=== PATIENT | male | born 1985 | race Caucasian/White ===

== ENCOUNTER 2016-10-09 16:25 | Emergency (ER) | payer OTHER ==
[~2016-10-09] VITALS: Ht 182.9 cm; Wt 76.0 kg
[2016-10-09 16:27] VITALS: BP 134/98; PULSE 74; RESP 24; TEMP 97.9; O2SAT 100
[2016-10-09] MEDS ORDERED: SODIUM CHLOR 0.9% 1000 ML INJ 1,000 ML IV SCH (20:29)
[2016-10-09] MEDS ORDERED: SODIUM CHLORIDE 0.9% FLUSH 5 ML FLUSH IVF PRN (20:30)
[2016-10-09] MEDS ORDERED: MORPHINE SULFATE 4 MG/ML INJ IV PUSH ONE (20:30)
[2016-10-09] MEDS ORDERED: KETOROLAC TROMETHAMINE 30 MG/ML (IVP) VIAL IVP ONE (20:30)
[2016-10-09] MEDS ORDERED: ONDANSETRON HCL 4 MG/2 ML VIAL IVP ONE (20:30)
--- NOTE | 2016-10-09 20:39 | PD ---
HPI Chief Complaint: Flank/Kidney Pain Time Seen by Provider: 20:31 Travel History International Travel<30 days: No Contact w/Intl Traveler<30days: No Traveled to known affect area: No History of Present Illness HPI 30-year-old male patient comes in with report of sudden onset right flank pain at 3:30 this afternoon. Patient states he was at work when it came on suddenly causing him to get sudden sweats, chills, and vomiting. Patient states that last approximately 5-10 minutes and then the pain subsided somewhat. Patient came to the emergency department and has been in the waiting room now for quite some time. Patient describes it as a dull ache at this point whereas before it was a sharp pain 10 over 10. It is currently 5/10 now. Patient denies urinary symptoms or burning with urination. Patient has no history of kidney stones in the past. Patient has felt well until 3:30 this afternoon. Patient has no known drug allergies. PFSH Social History Alcohol Use: Yes Tobacco Use: No Substance Use: No Allergies-Medications (Allergen,Severity, Reaction): Coded Allergies: No Known Allergies (Unverified , 10/09/16) Reported Meds & Prescriptions Reported Meds & Active Scripts Active Zofran (Ondansetron HCl) 4 Mg Tab 4 Mg PO Q6HR PRN Ketorolac (Ketorolac Tromethamine) 10 Mg Tab 10 Mg PO Q6HR PRN Flomax (Tamsulosin HCl) 0.4 Mg Cap 0.4 Mg PO HS Review of Systems Except as stated in HPI: all other systems reviewed are Neg General / Constitutional: Positive: Chills, No: Fever Eyes: No: Visual changes HENT: No: Headaches Cardiovascular: No: Chest Pain or Discomfort Respiratory: No: Shortness of Breath Gastrointestinal: Positive: Nausea, Vomiting, Abdominal Pain (earlier today. Right flank pain.) Genitourinary: Positive: Flank Pain (see history present illness.), No: Dysuria Musculoskeletal: No: Pain Skin: No Rash Neurologic: No: Weakness Psychiatric: No: Depression Endocrine: No: Polydipsia Hematologic/Lymphatic: No: Easy Bruising Physical Exam Narrative GENERAL: Patient appears in mild to moderate distress. Patient is noted to be walking somewhat guardedly. SKIN: Warm and dry. Mild pallor. Normal turgor. HEAD: Atraumatic. Normocephalic. EYES: Pupils equal and round. No scleral icterus. No injection or drainage. ENT: No nasal bleeding or discharge. Mucous membranes pink and moist. Pharynx is normal. NECK: Trachea midline. No JVD. Neck is supple and nontender. CARDIOVASCULAR: Regular rate and rhythm. RESPIRATORY: No accessory muscle use. Clear to auscultation. Breath sounds equal bilaterally. GASTROINTESTINAL: Abdomen soft, non-tender, nondistended. Hepatic and splenic margins not palpable. Patient has moderate right-sided CVA tenderness with percussion. MUSCULOSKELETAL: Extremities without clubbing, cyanosis, or edema. No obvious deformities. NEUROLOGICAL: Awake and alert. No obvious cranial nerve deficits. Motor grossly within normal limits. Five out of 5 muscle strength in the arms and legs. Normal speech. PSYCHIATRIC: Appropriate mood and affect; insight and judgment normal. Data Data Last Documented VS Vital Signs Date Time Temp Pulse Resp B/P Pulse Ox O2 Delivery O2 Flow Rate FiO2 10/09/16 16:27 97.9 74 24 134/98 100 Orders Basic Metabolic Panel (Bmp) (10/09/16 20:29) Complete Blood Count With Diff (10/09/16 20:29) Urinalysis - C+S If Indicated (10/09/16 20:29) Ct Abd/Pel W/O Iv Contrast (10/09/16 20:29) Iv Access Insert/Monitor (10/09/16 20:29) Ecg Monitoring (10/09/16 20:29) Oximetry (10/09/16 20:29) NPO (10/09/16 20:29) Morphine Inj (Morphine Inj) (10/09/16 20:30) Ondansetron Inj (Zofran Inj) (10/09/16 20:30) Sodium Chlor 0.9% 1000 Ml Inj (Ns 1000 M (10/09/16 20:29) Sodium Chloride 0.9% Flush (Ns Flush) (10/09/16 20:30) Ketorolac Inj (Toradol Inj) (10/09/16 20:30) Labs Laboratory Tests Test 10/09/16 21:05 White Blood Count 13.1 TH/MM3 Red Blood Count 4.65 MIL/MM3 Hemoglobin 14.2 GM/DL Hematocrit 41.1 % Mean Corpuscular Volume 88.4 FL Mean Corpuscular Hemoglobin 30.6 PG Mean Corpuscular Hemoglobin 34.6 % Concent Red Cell Distribution Width 13.6 % Platelet Count 315 TH/MM3 Mean Platelet Volume 7.7 FL Neutrophils (%) (Auto) 89.8 % Lymphocytes (%) (Auto) 5.8 % Monocytes (%) (Auto) 4.0 % Eosinophils (%) (Auto) 0.0 % Basophils (%) (Auto) 0.4 % Neutrophils # (Auto) 11.7 TH/MM3 Lymphocytes # (Auto) 0.8 TH/MM3 Monocytes # (Auto) 0.5 TH/MM3 Eosinophils # (Auto) 0.0 TH/MM3 Basophils # (Auto) 0.1 TH/MM3 CBC Comment DIFF FINAL Differential Comment Urine Color YELLOW Urine Turbidity CLEAR Urine pH 7.5 Urine Specific [place] 1.014 Urine Protein NEG mg/dL Urine Glucose (UA) NEG mg/dL Urine Ketones 10 mg/dL Urine Occult Blood SMALL Urine Nitrite NEG Urine Bilirubin NEG Urine Urobilinogen LESS THAN 2.0 MG/DL Urine Leukocyte Esterase NEG Urine RBC 10 /hpf Urine WBC 4 /hpf Urine Amorphous Sediment RARE Urine Mucus FEW /lpf Microscopic Urinalysis Comment CULT NOT INDICATED Sodium Level 139 MEQ/L Potassium Level 3.9 MEQ/L Chloride Level 105 MEQ/L Carbon Dioxide Level 25.3 MEQ/L Anion Gap 9 MEQ/L Blood Urea Nitrogen 12 MG/DL Creatinine 1.01 MG/DL Estimat Glomerular Filtration 87 ML/MIN Rate Random Glucose 103 MG/DL Calcium Level 9.0 MG/DL [facility] Medical Decision Making Medical Screen Exam Complete: Yes Emergency Medical Condition: Yes Differential Diagnosis Right flank pain. Renal colic. Kidney stone. Hydronephrosis. Urinary tract infection. Possible appendicitis. Narrative Course Patient is medically stable at time of exam. Labs ordered including CBC, BMP, urinalysis. CT of the abdomen/pelvis is ordered without contrast to evaluate for calculi. IV access is obtained patient is given 2 mg morphine IV, 30 mg Toradol IV as well as 4 mg Zofran IV. Patient is given 1000 mL normal saline bolus given. Patient is made nothing by mouth. CT does show a small right-sided hydronephrosis and small obstructive a radiopaque stone. Patient feels much improved after the above. Patient is felt to be stable to be discharged home. Patient was given Zofran 4 mg one every 6 hours when necessary nausea #12. Patient given Toradol 10 mg every 6 hours with food when necessary pain. #12. Patient started on Flomax 4 mg daily at bedtime #10. Patient is to push fluids and rest and follow with his primary care physician as discussed. Patient should return the emergency Department with worsening symptoms as needed. Diagnosis Primary Impression: Kidney calculi Additional Impression: Renal colic on right side Patient Instructions: General Instructions, Kidney Stones (ED), Renal Colic (DC ) Med/Other Pt SpecificInfo: Prescription(s) given Scripts Ondansetron (Zofran)4 Mg Tab4 Mg PO Q6HR PRN (NAUSEA OR VOMITING) #12 TAB Ref 0 Prov:Vijay Tam MD 10/09/16 Ketorolac 10 Mg Tab10 Mg PO Q6HR PRN (PAIN) #20 TAB Ref 0 Prov:Vijay Tam MD 10/09/16 Tamsulosin (Flomax)0.4 Mg Cap0.4 Mg PO HS #10 CAP Ref 0 Prov:Vijay Tam MD 10/09/16 Condition: Stable Tyshawn Murcia Oct 09, 2016 20:39
--- NOTE | 2016-10-09 21:06 | RADRPT ---
EXAM DATE/TIME: 10/09/2016 20:36 [place] COMPARISON: No previous studies available for comparison. INDICATIONS : Right flank pain with vomiting today. ORAL CONTRAST: No oral contrast ingested. RADIATION DOSE: 13.75 CTDIvol (mGy) MEDICAL HISTORY : None SURGICAL HISTORY : None. ENCOUNTER: Initial ACUITY: 1 day PAIN SCALE: 7/10 LOCATION: Right flank Abdomen/pelvis TECHNIQUE: Volumetric scanning of the abdomen and pelvis was performed. Using automated exposure control and ad justment of the mA and/or kV according to patient size, radiation dose was kept as low as reasonably achievable to obtain optimal diagnostic quality images. FINDINGS: There are tiny nonobstructing calculi measuring up to 1 mm superiorly and 2 mm inferiorly. There is m ild dilatation right renal pelvis. This abnormal fluid around the proximal and mid right ureter as we ll as some fluid extending into the right retroperitoneal space. There are some faint densities aroun d or within the proximal right ureter which may represent mildly radiopaque calculi. Findings are mos t characteristic of an obstructive uropathy on the right side. No distal ureteral calculus or bladder calculus is identified. On the left side there is a small nonobstructing 1 mm calculus in the midpol e. No bowel obstruction. No free air. No acute findings in the liver, spleen, adrenals or pancreas. No a cute bony abnormalities. CONCLUSION: 1. Mild dilatation right renal pelvis and abnormal fluid around the proximal right ureter and right-s ided retroperitoneum. Findings probably represent an obstructive uropathy on the right from mildly ra diopaque calculi. There are additional small nonobstructing calculi in both kidneys. Gab Coy MD on October 09, 2016 at 20:58 Board Certified Radiologist. This report was verified electronically.
[2016-10-09] MEDS ORDERED: TAMS5CAP PO (21:24)
[2016-10-09] MEDS ORDERED: KETO10 PO (21:24)
[2016-10-09] MEDS ORDERED: ZOFR4TAB PO (21:24)
[2016-10-09 21:32] LABS: AUTOMATED NEUTROPHIL # 11.7 TH/MM3 (1.8-7.7); BASOPHIL # 0.1 TH/MM3 (0-0.2); BASOPHIL % 0.4 % (0.0-2.0); HEMATOCRIT 41.1 % (39.0-51.0); HEMO FLAGS DIFF FINAL; LYMPH % 5.8 % (9.0-44.0); LYMPHOCYTE # 0.8 TH/MM3 (1.0-4.8); MEAN CELL VOLUME 88.4 FL (80.0-100.0); MEAN CORPUSCULAR HEMOGLOBIN 30.6 PG (27.0-34.0); MEAN CORPUSCULAR HGB CONC 34.6 % (32.0-36.0); NEUT % 89.8 % (16.0-70.0); PLATELET COUNT 315 TH/MM3 (150-450); RED BLOOD COUNT 4.65 MIL/MM3 (4.50-5.90); RED CELL DISTRIBUTION WIDTH 13.6 % (11.6-17.2); WHITE BLOOD COUNT 13.1 TH/MM3 (4.0-11.0)
[2016-10-09 21:37] LABS: BLOOD, URINE SMALL (NEG); COMMENT (UR) CULT NOT INDICATED; CULTURE IF INDICATED CULT NOT INDICATED; GLUCOSE,URINE NEG (NEG); KETONE, URINE 10 mg/dL (NEG); MUCUS URINE FEW /lpf (OCC); NITRITE,URINE NEG (NEG); PH, URINE 7.5 (5.0-8.5); URINE COLOR YELLOW (YELLW/STRAW)
[2016-10-09 21:49] LABS: BICARBONATE 25.3 MEQ/L (21.0-32.0); POTASSIUM 3.9 MEQ/L (3.5-5.1)
[2016-10-09] MEDS ORDERED: HYDR-3533 PO (22:16)
[2016-10-09 22:47] VITALS: O2SAT 99
--- NOTE | 2016-10-09 22:47 | PD ---
Data Data Last Documented VS Vital Signs Date Time Temp Pulse Resp B/P Pulse Ox O2 Delivery O2 Flow Rate FiO2 10/09/16 22:47 99 Room Air 10/09/16 16:27 97.9 74 24 134/98 Orders Basic Metabolic Panel (Bmp) (10/09/16 20:29) Complete Blood Count With Diff (10/09/16 20:29) Urinalysis - C+S If Indicated (10/09/16 20:29) Ct Abd/Pel W/O Iv Contrast (10/09/16 20:29) Iv Access Insert/Monitor (10/09/16 20:29) Ecg Monitoring (10/09/16 20:29) Oximetry (10/09/16 20:29) NPO (10/09/16 20:29) Morphine Inj (Morphine Inj) (10/09/16 20:30) Ondansetron Inj (Zofran Inj) (10/09/16 20:30) Sodium Chlor 0.9% 1000 Ml Inj (Ns 1000 M (10/09/16 20:29) Sodium Chloride 0.9% Flush (Ns Flush) (10/09/16 20:30) Ketorolac Inj (Toradol Inj) (10/09/16 20:30) Labs Laboratory Tests Test 10/09/16 21:05 White Blood Count 13.1 TH/MM3 Red Blood Count 4.65 MIL/MM3 Hemoglobin 14.2 GM/DL Hematocrit 41.1 % Mean Corpuscular Volume 88.4 FL Mean Corpuscular Hemoglobin 30.6 PG Mean Corpuscular Hemoglobin 34.6 % Concent Red Cell Distribution Width 13.6 % Platelet Count 315 TH/MM3 Mean Platelet Volume 7.7 FL Neutrophils (%) (Auto) 89.8 % Lymphocytes (%) (Auto) 5.8 % Monocytes (%) (Auto) 4.0 % Eosinophils (%) (Auto) 0.0 % Basophils (%) (Auto) 0.4 % Neutrophils # (Auto) 11.7 TH/MM3 Lymphocytes # (Auto) 0.8 TH/MM3 Monocytes # (Auto) 0.5 TH/MM3 Eosinophils # (Auto) 0.0 TH/MM3 Basophils # (Auto) 0.1 TH/MM3 CBC Comment DIFF FINAL Differential Comment Urine Color YELLOW Urine Turbidity CLEAR Urine pH 7.5 Urine Specific [place] 1.014 Urine Protein NEG mg/dL Urine Glucose (UA) NEG mg/dL Urine Ketones 10 mg/dL Urine Occult Blood SMALL Urine Nitrite NEG Urine Bilirubin NEG Urine Urobilinogen LESS THAN 2.0 MG/DL Urine Leukocyte Esterase NEG Urine RBC 10 /hpf Urine WBC 4 /hpf Urine Amorphous Sediment RARE Urine Mucus FEW /lpf Microscopic Urinalysis Comment CULT NOT INDICATED Sodium Level 139 MEQ/L Potassium Level 3.9 MEQ/L Chloride Level 105 MEQ/L Carbon Dioxide Level 25.3 MEQ/L Anion Gap 9 MEQ/L Blood Urea Nitrogen 12 MG/DL Creatinine 1.01 MG/DL Estimat Glomerular Filtration 87 ML/MIN Rate Random Glucose 103 MG/DL Calcium Level 9.0 MG/DL [facility] Medical Record Reviewed: Yes Supervised Visit with NAMAN: Yes Narrative Course I, Dr. Tam, have reviewed the advance practice practitioner's documentation and am in agreement, met with the patient face to face, made the diagnosis, and the medical decision making was done by me. *My assessment and Findings: The patient, Has a right renal stone right ureteric stone, presumably radiolucent with mild hydronephrosis. There is no suggestion of UTI on urinalysis. We will discharge home with pain control antiemetics and Flomax. Necessity of strict follow up endorsed. Pt verbalized understanding and is ready for discharge. Sep-inrpo-olragh stone of concern and d/w patient. Diagnosis Primary Impression: Kidney calculi Additional Impression: Renal colic on right side Referrals: Ellis Brown MD 2 days Patient Instructions: General Instructions, Kidney Stones (ED), Renal Colic (DC ) Departure Forms: Tests/Procedures Scripts Hydrocodone-Acetaminophen (Lortab)5-325 Mg Tab1-2 Tab PO Q6H PRN (PAIN SCALE 6 TO 10) #20 TAB Ref 0 Prov:Vijay Tam MD 10/09/16 Ondansetron (Zofran)4 Mg Tab4 Mg PO Q6HR PRN (NAUSEA OR VOMITING) #12 TAB Ref 0 Prov:Vijay Tam MD 10/09/16 Ketorolac 10 Mg Tab10 Mg PO Q6HR PRN (PAIN) #20 TAB Ref 0 Prov:Vijay Tam MD 10/09/16 Tamsulosin (Flomax)0.4 Mg Cap0.4 Mg PO HS #10 CAP Ref 0 Prov:Vijay Tam MD 10/09/16 Condition: Stable Vijay Tam MD Oct 09, 2016 22:47
== END 2016-10-09 23:44 | disposition home or self-care (01) ==
LOC: NEPC 16:25
DX: N20.0 Calculus of kidney (principal)
CPT/HCPCS: 74176; 80048; 81001; 85025; 96361; 96374; 96375; 99284; J1885; J2405; J7030